=== PATIENT | male | born 1955 | race Hispanic/Latino ===

== ENCOUNTER → 2021-07-14 | Outpatient (CLI) | payer BC ==
[~2021-07-14] MED LIST: ASPI81TA40 PO; CARV6.25 PO; EZET10TA48 PO; FERR-72 PO; HYDR25TA PO; METF-446 PO; ROSU40TA21 PO
== END | disposition home or self-care (01) ==
LOC: SHCH 13:23
PROVIDERS: ATTEND Internal Medicine Cardiovascular Disease
DX: I82.409 Acute embolism and thrombosis of unspecified deep veins of unspecified lower extremity (principal)
CPT/HCPCS: 93971

== ENCOUNTER 2022-01-08 11:10 | Emergency (ER) | payer MEDICARE ==
[~2022-01-08] VITALS: Ht 175.3 cm; Wt 71.7 kg
[2022-01-08] MEDS ORDERED: BISACODYL 10 MG SUPP.RECT RC ONE (11:30)
[2022-01-08 11:50] LABS: BASOPHILS % (AUTO) 0.4 % (0.0-5.0); EOSINOPHILS % (AUTO) 0.4 % (0.0-8.0); HEMATOCRIT 34.9 % (42-54); LYMPHOCYTES % (AUTO) 19.9 % (21.0-51.0); MEAN CORPUSCULAR HEMOGLOBIN 32.2 pg (27.0-33.0); MEAN CORPUSCULAR HGB CONC 33.5 g/dL (32.0-36.0); MEAN CORPUSCULAR VOLUME 96.1 fL (79-99); MONOCYTES % (AUTO) 1.6 % (3.0-13.0); NEUTROPHILS % (AUTO) 77.3 % (40.0-77.0); PLATELET COUNT (AUTO) 150 K/uL (130-400); RED BLOOD CELL COUNT(AUTO) 3.63 MIL/uL (4.50-6.20); WHITE BLOOD COUNT (AUTO) 4.9 K/uL (4.8-10.8)
[2022-01-08 12:13] LABS: CARBON DIOXIDE 26 mmol/L (21-32); CHLORIDE 102 mmol/L (101-111); CREATININE 0.9 mg/dL (0.5-1.5); GLOMERULAR FILTR. RATE CALC 89 mL/min (>60); GLUCOSE,RANDOM 175 mg/dL (70-105); POTASSIUM 4.1 mmol/L (3.5-5.1); SODIUM SERUM 137 mmol/L (136-145); UREA NITROGEN, BLOOD 27 mg/dL (7-18)
[2022-01-08 12:14] LABS: ALBUMIN 3.4 g/dL (3.5-5.0); LIPASE 122 U/L (114-286)
[2022-01-08 12:49] LABS: ALANINE AMINOTRANSFERASE 23 U/L (12-78); ASPARTATE AMINOTRANSFERASE 24 U/L (10-37); TOTAL PROTEIN, SERUM 6.5 g/dL (6.0-8.3)
[2022-01-08 13:09] VITALS: BP 132/69
== END 2022-01-08 13:26 | disposition home or self-care (01) ==
LOC: EDH 11:10
DX: K59.00 Constipation, unspecified (principal); E11.65 Type 2 diabetes mellitus with hyperglycemia; D64.9 Anemia, unspecified; E78.00 Pure hypercholesterolemia, unspecified; I10 Essential (primary) hypertension; I25.10 Atherosclerotic heart disease of native coronary artery without angina pectoris; Z79.82 Long term (current) use of aspirin; Z79.84 Long term (current) use of oral hypoglycemic drugs; Z79.899 Other long term (current) drug therapy; Z85.028 Personal history of other malignant neoplasm of stomach; Z88.8 Allergy status to other drugs, medicaments and biological substances; Z95.1 Presence of aortocoronary bypass graft
CPT/HCPCS: 36415; 74018; 80053; 83690; 83735; 85025

== ENCOUNTER 2023-02-07 11:00 | Inpatient (IN) | payer MEDICARE ==
[~2023-02-07] VITALS: Ht 175.3 cm; Wt 72.9 kg
[~2023-02-07 11:00] MED LIST changes: -ASPI81TA40 PO; +CYAN50009 PO; -EZET10TA48 PO; -FERR-72 PO; +GABA-529 PO; -HYDR25TA PO; +METF-444 PO; -METF-446 PO; +MULT-1081 PO; -ROSU40TA21 PO
[2023-02-08 10:32] LABS: BASOPHILS # (AUTO) 0.02 K/uL (0.00-0.20); BASOPHILS % (AUTO) 0.6 % (0.0-5.0); EOSINOPHILS # (AUTO) 0.06 K/uL (0.00-0.70); EOSINOPHILS % (AUTO) 1.7 % (0.0-8.0); HEMATOCRIT 32.4 % (42-54); IMMATURE GRANULOCYTE ABSOLUTE 0.01 K/uL (0-1); LYMPHOCYTES # (AUTO) 0.4 K/uL (1.0-4.8); LYMPHOCYTES % (AUTO) 11.5 % (21.0-51.0); MEAN CORPUSCULAR HEMOGLOBIN 30.8 pg (27.0-33.0); MEAN CORPUSCULAR VOLUME 93.4 fL (79-99); MONOCYTES # (AUTO) 0.3 K/uL (0.1-1.0); MONOCYTES % (AUTO) 9.7 % (3.0-13.0); NEUTROPHILS # (AUTO) 2.7 K/uL (1.8-7.7); NEUTROPHILS % (AUTO) 76.2 % (40.0-77.0); PLATELET COUNT (AUTO) 180 K/uL (130-400); RED BLOOD CELL COUNT(AUTO) 3.47 MIL/uL (4.50-6.20); RED CELL DISTRIBUTION WIDTH 13.4 % (11.0-15.5); WHITE BLOOD COUNT (AUTO) 3.5 K/uL (4.8-10.8)
[2023-02-08 10:47] LABS: ALBUMIN 3.5 g/dL (3.5-5.0); BILIRUBIN,TOTAL 0.4 mg/dL (0.2-1.0); CREATININE 1.3 mg/dL (0.5-1.5); TOTAL PROTEIN, SERUM 6.8 g/dL (6.0-8.3)
[2023-02-08 10:57] LABS: INR 0.93 (0.85-1.15); PROTHROMBIN TIME 10.1 SEC (9.6-11.6)
[2023-02-08 10:57] LABS: APPEARANCE,URINE CLEAR (CLEAR); BILIRUBIN,URINE 0.5 mg/dL (NEGATIVE); COLOR,URINE YELLOW (YELLOW); GLUCOSE, URINE (UA) 200 mg/dL (NEGATIVE); KETONES,URINE 5 mg/dL (NEGATIVE); LEUKOCYTE ESTERASE ,URINE NEGATIVE Leu/uL (NEGATIVE); NITRATE,URINE NEGATIVE (NEGATIVE); OCCULT BLOOD,URINE NEGATIVE (NEGATIVE); PROTEIN,URINE 600 mg/dL (NEGATIVE); UROBILINOGEN,URINE 3 mg/dL (0.2-1.0)
[2023-02-08 10:58] LABS: ADD UA MICROSCOPIC YES
[2023-02-08 10:59] LABS: PARTIAL THROMBOPLASTIN TIME 26.8 SEC (26.3-35.5)
[2023-02-08 11:00] LABS: MUCUS,URINE FEW LPF (None Seen); SQUAMOUS EPITHELIAL CELL,UR RARE /HPF (0-2)
[2023-02-08 11:23] VITALS: BP 160/81; PULSE 69; RESP 17
[2023-02-08] MEDS ORDERED: PANT40GR PO (11:44)
[2023-02-08] MEDS ORDERED: LOSA25TA41 PO (11:44)
[2023-02-08] MEDS ORDERED: ROSU10TA28 PO (11:44)
[2023-02-12] VITALS (25 sets, daily range): BP systolic 106–190; BP diastolic 64–108; PULSE 63–95; RESP 10–20
[2023-02-12] MEDS ORDERED: BUPIVACAINE/PF 0.5% 30ML VIAL ONE (07:26)
[2023-02-12] MEDS ORDERED: LIDOCAINE 2%-EPI 1:200,000 20 ML VIAL IJ ONE (07:27)
[2023-02-12] MEDS ORDERED: INDOCYANINE GREEN 25 MG VIAL IJ ONE (07:31)
[2023-02-12] MEDS ORDERED: BUPIVACAINE/PF 0.5% 30ML VIAL INJ ONE (07:39)
[2023-02-12] MEDS ORDERED: CEFAZOLIN SODIUM 2 GM VIAL ONE (07:40)
[2023-02-12] MEDS ORDERED: 0.9%NACL 1000ML 1,000 ML IV ONE (07:40)
[2023-02-12] MEDS ORDERED: SUCCINYLCHOLINE 200MG/10ML SYR ONE (08:11)
[2023-02-12] MEDS ORDERED: MIDAZOLAM HCL 1 MG/ML 2ML VIAL ONE (08:11)
[2023-02-12] MEDS ORDERED: LIDOCAINE PF 100MG/5ML (2%) SYRINGE 5ML ONE (08:11)
[2023-02-12] MEDS ORDERED: PROPOFOL 10 MG/ML 20ML VIAL IV ONE (08:11)
[2023-02-12] MEDS ORDERED: ROCURONIUM 10MG/1ML SYR 10 MG/ML ML ONE (08:12)
[2023-02-12] MEDS ORDERED: FENTANYL CITRATE PF 50 MCG/1 ML 2ML VIAL ONE (08:12)
[2023-02-12] MEDS ORDERED: PHENYLEPHRINE HCL 10 MG/ML 1ML VIAL IV ONE ×2 (08:28→11:20)
[2023-02-12] MEDS ORDERED: GLYCOPYRROLATE 1 MG/5 ML SYRINGE ONE ×2 (08:46→12:05)
[2023-02-12] MEDS ORDERED: CEFAZOLIN SODIUM 2 GM VIAL IVPB ONE (08:52)
[2023-02-12] MEDS ORDERED: EPHEDRINE SULFATE 50 MG/ML AMPULE ONE (09:44)
[2023-02-12] MEDS ORDERED: FOLI0.8C PO (11:40)
[2023-02-12] MEDS ORDERED: vitamin b12 PO (11:40)
[2023-02-12] MEDS ORDERED: CLOP75TA32 PO (11:40)
[2023-02-12] MEDS ORDERED: CARV6.25 PO (11:40)
[2023-02-12] MEDS ORDERED: GABA-529 PO (11:40)
[2023-02-12] MEDS ORDERED: NEOSTIGMINE 5MG/5ML SYR IV ONE (12:05)
[2023-02-12] MEDS ORDERED: HYDRALAZINE 20MG/ML VIAL ONE ×2 (12:12→12:37)
[2023-02-12] MEDS ORDERED: PROCHLORPERAZINE 10MG/2ML INJ IV PRN (12:30)
[2023-02-12] MEDS ORDERED: ONDANSETRON 4MG INJ IVP PRN (12:30)
[2023-02-12] MEDS ORDERED: MORPHINE 2 MG SYG IVP PRN (12:30)
[2023-02-12] MEDS ORDERED: MORPHINE 4 MG SYG IVP PRN (12:30)
[2023-02-12] MEDS ORDERED: MEPERIDINE-PF 25 MG/ML SYG ONE (12:54)
[2023-02-12] MEDS: D5LR-20 MEQ KCL 1000 ML 1,000 ML IV SCH ×2 (15:33→19:10)
[2023-02-12] MEDS: INSULIN HUMULIN R 100 UNIT/ML 3ML SQ SCH ×2 (16:15→21:05)
[2023-02-12] MEDS ORDERED: TAMS-1 PO (17:20)
[2023-02-12] MEDS ORDERED: TAMSULOSIN HCL 0.4 MG CAP.ER.24H PO SCH (17:30)
[2023-02-12] MEDS: CARVEDILOL 6.25 MG TABLET PO SCH (21:00)
[2023-02-12] MEDS: GABAPENTIN 100 MG CAPSULE PO SCH (21:17)
[2023-02-12] MEDS: KETOROLAC 30MG VIAL (30MG/ML) IV PRN (22:53)
[2023-02-13] VITALS (8 sets, daily range): BP systolic 132–153; BP diastolic 73–88; PULSE 81–91; RESP 17–20; O2SAT 99
[2023-02-13] MEDS: D5LR-20 MEQ KCL 1000 ML 1,000 ML IV SCH ×4 (01:50→21:50)
[2023-02-13] MEDS: INSULIN HUMULIN R 100 UNIT/ML 3ML SQ SCH ×4 (06:16→20:56)
[2023-02-13] MEDS: TAMSULOSIN HCL 0.4 MG CAP.ER.24H PO SCH (08:17)
[2023-02-13] MEDS: CARVEDILOL 6.25 MG TABLET PO SCH ×2 (08:18→21:00)
[2023-02-13] MEDS: LOSARTAN 25 MG TABLET PO SCH (08:20)
[2023-02-13] MEDS: KETOROLAC 30MG VIAL (30MG/ML) IV PRN ×2 (13:41→21:54)
[2023-02-13] MEDS: GABAPENTIN 100 MG CAPSULE PO SCH (20:59)
[2023-02-14] VITALS: BP 135/75; PULSE 84; RESP 20
[2023-02-14] MEDS: KETOROLAC 30MG VIAL (30MG/ML) IV PRN (03:26)
[2023-02-14 04:00] VITALS: BP 160/90; PULSE 82; RESP 20
[2023-02-14] MEDS: D5LR-20 MEQ KCL 1000 ML 1,000 ML IV SCH ×2 (04:30→11:10)
[2023-02-14] MEDS: INSULIN HUMULIN R 100 UNIT/ML 3ML SQ SCH ×2 (06:03→11:30)
[2023-02-14 07:00] VITALS: BP 150/86; PULSE 75; RESP 20
[2023-02-14 07:45] VITALS: O2SAT 98
[2023-02-14 08:34] VITALS: BP 150/86
[2023-02-14] MEDS: LOSARTAN 25 MG TABLET PO SCH (08:34)
[2023-02-14] MEDS: CARVEDILOL 6.25 MG TABLET PO SCH (08:34)
[2023-02-14] MEDS: TAMSULOSIN HCL 0.4 MG CAP.ER.24H PO SCH (08:34)
== END 2023-02-14 14:20 | disposition home or self-care (01) | DRG 327 ==
LOC: DAHIP 02-12 07:01 → 4BH 02-12 13:30 → UNDODISIN 02-14 16:20
PROVIDERS: ADMIT Student in an Organized Health Care Education/Training Program; ATTEND Student in an Organized Health Care Education/Training Program
PROC: 0DB64ZZ Excision of Stomach, Percutaneous Endoscopic Approach (ICD-10-PCS; 2023-02-12)
PROC: 0DNW3ZZ Release Peritoneum, Percutaneous Approach (ICD-10-PCS; 2023-02-12)
PROC: 8E0W3CZ Robotic Assisted Procedure of Trunk Region, Percutaneous Approach (ICD-10-PCS; 2023-02-12)
PROC: 0D1 Gastrointestinal System, Bypass (ICD-10-PCS; 2023-02-12)
PROC: 0WQF0ZZ Repair Abdominal Wall, Open Approach (ICD-10-PCS; principal; 2023-02-12 08:00)
DX: C16.9 Malignant neoplasm of stomach, unspecified (principal); K92.2 Gastrointestinal hemorrhage, unspecified; K43.2 Incisional hernia without obstruction or gangrene; K44.9 Diaphragmatic hernia without obstruction or gangrene; E11.22 Type 2 diabetes mellitus with diabetic chronic kidney disease; E11.51 Type 2 diabetes mellitus with diabetic peripheral angiopathy without gangrene; Z98.84 Bariatric surgery status; D64.81 Anemia due to antineoplastic chemotherapy; E78.5 Hyperlipidemia, unspecified; N18.9 Chronic kidney disease, unspecified; T45.1X5A Adverse effect of antineoplastic and immunosuppressive drugs, initial encounter; I25.10 Atherosclerotic heart disease of native coronary artery without angina pectoris; I12.9 Hypertensive chronic kidney disease with stage 1 through stage 4 chronic kidney disease, or unspecified chronic kidney disease; K66.0 Peritoneal adhesions (postprocedural) (postinfection); F41.9 Anxiety disorder, unspecified; Z80.0 Family history of malignant neoplasm of digestive organs; Z85.028 Personal history of other malignant neoplasm of stomach; Z90.3 Acquired absence of stomach [part of]; Z95.1 Presence of aortocoronary bypass graft; Y92.89 Other specified places as the place of occurrence of the external cause
CPT/HCPCS: 36415; 80053; 81001; 82948; 85025; 85610; 85730; 87088; 88302; 88305; 88307; 88311; 93005; 94760; 97039; A4344; A4606; G0378; J0330; J0360; J1815; J1885; J2001; J2175; J2250; J2371; J2704; J2710; J3010; J3480; J3490; J7030; A4215; A4221; A4222; A4223; A4600; A4663; A6260; G0168; G8980-CI; G8983-CI; J0690

== ENCOUNTER → 2024-07-24 | Outpatient (CLI) | payer MEDICARE ==
[~2024-07-24] MED LIST changes: +CLOP75TA32 PO; -CYAN50009 PO; +FOLI0.8C PO; +LOSA25TA41 PO; -MULT-1081 PO; +PANT40GR PO; +ROSU10TA72 PO; +TAMS-1 PO; +vitamin b12 PO
[2024-07-24 12:43] LABS: % IRON SATURATION 27.3 % (30-44)
[2024-07-24 13:08] LABS: FERRITIN 68 ng/mL (30-400)
== END | disposition home or self-care (01) ==
LOC: LAB 10:47
PROVIDERS: ATTEND Internal Medicine Cardiovascular Disease
DX: I10 Essential (primary) hypertension (principal); R53.82 Chronic fatigue, unspecified; E11.9 Type 2 diabetes mellitus without complications; I25.10 Atherosclerotic heart disease of native coronary artery without angina pectoris; E78.5 Hyperlipidemia, unspecified; I35.0 Nonrheumatic aortic (valve) stenosis; Z95.1 Presence of aortocoronary bypass graft; Z79.899 Other long term (current) drug therapy
CPT/HCPCS: 36415; 82607; 82728; 82746; 83540; 83550

== ENCOUNTER → 2024-07-31 | Outpatient (CLI) | payer MEDICARE ==
--- NOTE | 2024-07-31 12:47 | HMCIMG ---
Carotid Duplex and color-flow Doppler bilateral Clinical Information: OTHER SYMPTOMS INVOLVING CIRCULATORY Comparison: None Findings: Mild bilateral bifurcation plaque is seen. No hemodynamically significant stenosis noted. Left Internal Carotid Artery Peak Systolic Velocity (PSV), Left Internal Carotid to Common Carotid Artery peak systolic velocity ratio, Right Internal Carotid Artery Peak Systolic Velocity (PSV) and Right Internal Carotid to Common Carotid Artery peak systolic velocity ratio, are all within normal limits. External carotid artery velocities normal bilaterally. Bilateral vertebral arteries show normal velocities and waveforms with antegrade flow. Impression: No hemodynamically significant stenosis noted. NASCET CRITERIA. The degree of internal carotid artery stenosis is based on NASCET criteria. Normal is no stenosis. Mild is less than 50% stenosis. Moderate is 50-69% stenosis. Severe is 70% to 99% stenosis. Total occlusion is no detectable patent lumen.
--- NOTE | 2024-07-31 13:37 | HMCSR ---
APPROVED REPORT EXAM: Two-dimensional and M-mode echocardiogram with Doppler and color Doppler. Study Details: Hx: Cancer INDICATION ICD: Aortic valve disorders I35.0 2D Dimensions IVSd1.2 (0.7-1.1cm)LVEF(%)66.2 (>50%)LVED Vol(simp.)103.0 mL LVDd3.9 (3.8-5.6cm)FS(%)36 %LVES Vol(simp.)43.5 mL PWd1.4 (0.7-1.1cm)LA (2D)4.0 (1.6-4.0cm)LVEF(%, simp.)58 % IVSs1.7 cmAo Root(2D)2.8 (2.0-3.7cm)LA ESV INDEX (4CH)42.10 mL/m2 LVDs2.5 (2.5-4.0cm)LVOT diam2.0 (1.8-2.4cm)LA ESV INDEX (2CH)43.30 mL/m2 PWs2.1 cmLA ESV INDEX (BP)42.70 mL/m2 Deformation Strain Apical 420.0 % Apical 224.0 % Apical 324.0 % Global Nsqtgp97.0 % M-Mode Dimensions EPSS0.4 cm LA (MM)4.3 (1.6-4.0cm) Ao Root(MM)3.3 (2.0-3.7cm) Aortic Valve AoV Vmax4.3 m/Felipe Peak GR77.0 mmHgLVOT VTI0.22 m AoV VTI1.1 mAo Mean GR51.0 mmHgAVA (VTI) 0.6 cm2 TED (VMAX)0.6 cm2 Mitral Valve MV E Vmax96.5 cm/sDECEL Jfym711 msMV Mean GR3 mmHg MV A Vmax75.2 cm/sP 1/2 T74 msMVA (VTI)1.7 cm2 E/A ratio1.3MVA (PHT)3.0 cm2 MR Max PG114 mmHg TDI E/E' Lrrsux82.4E/E' Gmuzfoj24.3 Medial E' Peak V4.50 cm/sLateral E' Peak V9.40 cm/s Pulmonary Valve PV VTI0.33 mPV Mean GR4 mmHg Tricuspid Valve RAP (EST) 3 mmHgRVSP3.0 mmHg Left Ventricle The left ventricle is normal size. GLS -23.0%. Mild concentric left ventricular hypertrophy. LVEF is 55-60%. Right Ventricle The right ventricle is normal size. The right ventricular systolic function is normal. Atria The left atrium is mildly dilated. The right atrium size is normal. Aortic Valve The aortic valve is trileaflet and thickened with restricted opening. Trace aortic regurgitation. The re is severe aortic stenosis. Calculated aortic valve area is 0.6 cm2 with maximum pressure gradient of 77 mmHg and mean pressure gradient of 51 mmHg. Mitral Valve There is mild mitral annular calcification noted. The mitral valve is thickened and calcified. There is mild mitral valve regurgitation noted. There is no mitral valve stenosis. Tricuspid Valve The tricuspid valve is normal in structure. There is trace of tricuspid valve regurgitation noted. Pulmonic Valve The pulmonary valve is normal in structure. There is no pulmonic valvular regurgitation. Great Vessels The aortic root is normal in size. The IVC is normal in size and collapses >50% with inspiration. Pericardium There is no pericardial effusion. Other Information Quality : Adequate Conclusion Mild concentric left ventricular hypertrophy. LVEF is 55-60%. GLS -23.0%. There is severe aortic stenosis. Calculated aortic valve area is 0.6 cm2 with maximum pressure gradient of 77 mmHg and mean pressure g radient of 51 mmHg. There is mild mitral annular calcification noted. The mitral valve is thickened and calcified. There is mild mitral valve regurgitation noted.
== END | disposition home or self-care (01) ==
LOC: RAH 10:01
PROVIDERS: ATTEND Internal Medicine Cardiovascular Disease
DX: I08.0 Rheumatic disorders of both mitral and aortic valves (principal)
CPT/HCPCS: 93306; 93356; 93880

== ENCOUNTER 2024-09-11 07:21 | Day surgery (SDC) | payer MEDICARE ==
[2024-09-08 10:03] VITALS: PULSE 61; RESP 18; TEMP 97.2
--- NOTE | 2024-09-08 10:05 | EKG ---
[facility] Test Date: 2024-09-08 Test Time: 09:59:09 Pat Name: BILLY APODACA Department: [facility] Room: Gender: M Unbundler: [id number] : 1955 Requested By: ROBERT ELENA Order Number: [id number] Reading MD: Robert Elena Measurements Intervals [place] Rate: 58 P: 88 DC: 159 QRS: 80 QRSD: 90 T: 57 QT: 457 QTc: 450 Interpretive Statements Sinus rhythm ST elevation, consider anterior injury Compared to ECG 02/08/2023 10:12:39 No significant changes Electronically Signed On 09-10-2024 14:11:53 CDT by Robert Elena Please click the below link to view image of tracing.
[2024-09-08 10:11] LABS: BASOPHILS # (AUTO) 0.02 K/uL (0.00-0.20); BASOPHILS % (AUTO) 0.6 % (0.0-5.0); EOSINOPHILS # (AUTO) 0.09 K/uL (0.00-0.70); EOSINOPHILS % (AUTO) 2.9 % (0.0-8.0); HEMATOCRIT 28.9 % (42-54); IMMATURE GRANULOCYTE ABSOLUTE 0.01 K/uL (0-1); LYMPHOCYTES # (AUTO) 0.5 K/uL (1.0-4.8); LYMPHOCYTES % (AUTO) 15.3 % (21.0-51.0); MEAN CORPUSCULAR HEMOGLOBIN 31.2 pg (27.0-33.0); MEAN CORPUSCULAR HGB CONC 32.5 g/dL (32.0-36.0); MONOCYTES # (AUTO) 0.3 K/uL (0.1-1.0); MONOCYTES % (AUTO) 10.9 % (3.0-13.0); NEUTROPHILS # (AUTO) 2.2 K/uL (1.8-7.7); PLATELET COUNT (AUTO) 149 K/uL (130-400); RED BLOOD CELL COUNT(AUTO) 3.01 MIL/uL (4.50-6.20); RED CELL DISTRIBUTION WIDTH 13.4 % (11.0-15.5); WHITE BLOOD COUNT (AUTO) 3.1 K/uL (4.8-10.8)
[2024-09-08 10:13] LABS: APPEARANCE,URINE CLEAR (CLEAR); BILIRUBIN,URINE NEGATIVE (NEGATIVE); COLOR,URINE YELLOW (YELLOW); GLUCOSE, URINE (UA) 30 mg/dL (NEGATIVE); KETONES,URINE NEGATIVE (NEGATIVE); LEUKOCYTE ESTERASE ,URINE NEGATIVE Leu/uL (NEGATIVE); NITRATE,URINE NEGATIVE (NEGATIVE); OCCULT BLOOD,URINE NEGATIVE (NEGATIVE); PROTEIN,URINE 300 mg/dL (NEGATIVE)
[2024-09-08 10:15] LABS: ADD UA MICROSCOPIC YES
[2024-09-08 10:19] LABS: CREATININE 1.4 mg/dL (0.5-1.3); POTASSIUM 4.5 mmol/L (3.5-5.1)
[2024-09-08 10:21] LABS: INR 0.98 (0.85-1.15); MUCUS,URINE RARE LPF (None Seen); PROTHROMBIN TIME 10.4 SEC (9.6-11.6); SQUAMOUS EPITHELIAL CELL,UR RARE /HPF (0-2)
[2024-09-08 10:52] LABS: B-TYPE NATRIURETIC PEPTIDE 490 pg/mL (0-100)
--- NOTE | 2024-09-08 12:19 | HMCIMG ---
Exam Type: CHEST 1VW Clinical Information: PREOP Comparison: None Findings: Left Mediport catheter in place. There is normal heart size and there is status post median sternotomy. The lungs are clear of infiltrates. Impression: Clear lungs.
--- NOTE | 2024-09-10 09:00 | NUR ---
RE: LABS REPORTED BMP RESULTS TO ZURDO OBRIEN NP. NO NEW ORDERS RECEIVED.
[~2024-09-11] VITALS: Ht 175.3 cm; Wt 61.8 kg
[2024-09-11] VITALS (10 sets, daily range): BP systolic 92–160; BP diastolic 53–83; PULSE 58–88; RESP 13–16; TEMP 97.2–97.4
[~2024-09-11 07:21] MED LIST changes: +ASPI-1005 PO; +ATOR10 PO; +CARV12.511 PO; -CARV6.25 PO; -CLOP75TA32 PO; -METF-444 PO; +NITR0.4T50 SL; -PANT40GR PO; -ROSU10TA72 PO; -TAMS-1 PO
[2024-09-11] MEDS: DiphenhydrAMINE HCL 50 MG/ML VIAL IV ONE (08:32)
[2024-09-11] MEDS: Solu-medROL 125MG VIAL IVP ONE (08:32)
[2024-09-11] MEDS: 0.9%NACL 1000ML 1,000 ML IV SCH (08:32)
[2024-09-11] MEDS ORDERED: IOHEXOL 350 MG/ML 100ML INFUS..BTL IV ONE (08:50)
[2024-09-11] MEDS ORDERED: IOHEXOL-350 50ML VIAL IV ONE (08:50)
[2024-09-11] MEDS ORDERED: LIDOCAINE HCL 400MG/20ML VIAL ONE (08:50)
[2024-09-11] MEDS ORDERED: HEParin 10,000 UNIT/10ML (1,000 UNIT/ML) VIAL ONE (08:51)
[2024-09-11] MEDS ORDERED: HEParin-NS 1,000 UNIT/500 ML 1,000 ML IV ONE (08:51)
[2024-09-11] MEDS ORDERED: MIDAZOLAM HCL 1 MG/ML 2ML VIAL ONE (09:25)
[2024-09-11] MEDS ORDERED: hydrALAZine 20MG/ML VIAL ONE (09:39)
--- NOTE | 2024-09-11 10:44 | PRN ---
Cath Procedure Report CATH PROCEDURE REPORT CARDIAC CATHETERIZATION REPORT Date of Service: Sep 11, 2024 After informed consent the patient was prepped and draped in usual fashion. He received total of 20 cc of 2% xylocaine in the inguinal area for local anesthesia. He also received 1 mg of Versed for conscious sedation. A six Marshallese sheath was introduced into the right femoral artery using modified Seldinger technique. An eight Marshallese sheath was introduced into the right femoral vein using modified Seldinger technique. A Gladys-Edwardo catheter was advanced under fluoroscopic guidance to the right pulmonary artery. Wedge and PA pressures were measured. Pigtail catheter was then advanced over guidewire to the aortic root. Wire was removed and replaced with a straight wire which was used to cross the aortic valve. Wire was removed and simultaneous wedge an ETT pressures measured. Thermodilution cardiac outputs were measured. No ventriculogram was performed due to an LV EDP of 23 mm Hg. A right heart pullback was performed with measurements in the PA pressures RV pressures and right atrial pressures. The Gladys-Edwardo catheter was removed. A pullback across the aortic valve was performed and hemodynamics measured. The pigtail catheter was removed. A Phillip four left six Marshallese diagnostic catheter was advanced over guidewire to the aortic root. Wire was removed and catheter engaged into the left main coronary artery. The left coronary system was visualized multiple planes and catheter was removed. A Phillip four right six Marshallese diagnostic catheter was advanced over guidewire to the aortic root. Wire was removed and catheter engaged into the [place] right coronary artery which was visualized. The catheter was then manipulated to the origin of the saphenous graft to PDA, saphenous graft to the 1st and 2nd obtuse marginal arteries and saphenous vein graft to the 3rd obtuse marginal artery. The catheter was then manipulated to the origin of the KNOWLES graft which was visualized in multiple planes. Catheter was removed. A sheathogram performed and six Marshallese Angio-Seal closure device applied to the arterial sheath. The venous sheath was removed and manual pressure applied. The entire procedure was well tolerated without complications. 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 The saphenous graft to the acute marginal branch and PDA is occluded. There was collateral filling of the PDA from the acute marginal branch mid circumflex artery and septal utility locator of the LAD. The left main coronary artery has an 80% distal stenosis. The LAD is totally occluded after the 1st septal utility locator. The KNOWLES graft is widely patent and there was no significant distal stenosis in the LAD. The circumflex artery is totally occluded in the midportion. Obtuse marginal arteries were not visualized. The saphenous graft to the 1st and 2nd obtuse marginal artery is occluded. The saphenous graft to the 3rd obtuse marginal artery is occluded. Hemodynamics revealed moderate aortic stenosis with a mean gradient of 31 mm Hg and aortic valve area of 0.94 cm2. In addition there was moderate mitral stenosis with an 8 mm gradient. Cardiac output was 5.28 L per minute with a cardiac index of 3.0. Recommendations for be for medical management. His aortic stenosis but not appear to be severe enough to warrant a TAVR valve. We will recommend adding nitrates to his beta blockers and reassess for tolerance and efficacy. Report dictated by HODA Leger MD, MD Sep 11, 2024 10:44
--- NOTE | 2024-09-11 11:40 | NUR ---
RX CALLED INTO [facility] PER PT REQUEST
== END 2024-09-11 14:30 | disposition home or self-care (01) ==
LOC: DAH 07:21 → EDSTATUS 09:00 → DAH 14:30
PROVIDERS: ATTEND Internal Medicine Cardiovascular Disease
DX: I35.0 Nonrheumatic aortic (valve) stenosis (principal); I25.118 Atherosclerotic heart disease of native coronary artery with other forms of angina pectoris; I25.810 Atherosclerosis of coronary artery bypass graft(s) without angina pectoris; I11.0 Hypertensive heart disease with heart failure; I50.32 Chronic diastolic (congestive) heart failure; E78.5 Hyperlipidemia, unspecified; E11.9 Type 2 diabetes mellitus without complications; R53.82 Chronic fatigue, unspecified; Z85.028 Personal history of other malignant neoplasm of stomach; Z98.84 Bariatric surgery status; Z90.49 Acquired absence of other specified parts of digestive tract; Z79.82 Long term (current) use of aspirin; Z79.84 Long term (current) use of oral hypoglycemic drugs; Z79.899 Other long term (current) drug therapy
CPT/HCPCS: 80048; 83880; 85025; 85610; 85730; 81001; 36415; 71045; 93005; 93461; C1769; C1894 ×2; C1760; J1200; J3490; J7030; J2919; J0360; J2250; J1644; Q9967; A4215; A4222; A4221; A4663; A4216; A4606; Q9965; A4223 ×3; 96360; 96361; 99156; 99157